=== PATIENT | female | born 1990 | race African-American/Black ===

== ENCOUNTER 2016-12-21 11:08 | Emergency (ER) | payer OTHER ==
[2016-12-21 11:41] VITALS: BP 102/49; PULSE 74; TEMP 98; BMI 19.8
[2016-12-21] MEDS ORDERED: IBUPROFEN 600 MG TABLET (FP) PO ONE ×2 (13:37→14:04)
[2016-12-21] MEDS ORDERED: AMOXICILLIN 500 MG CAPSULE (FP) PO ONE (13:37)
--- NOTE | 2016-12-21 14:01 | PDOC ---
[id number] 4d PAIN Time Seen by Provider: 12/21/16 13:18 History Source: Patient Exam Limitations: No Limitations - History of Present Illness Initial Comments: 12/21/16 13:57 CHIEF COMPLAINT: Toothache HISTORY OF PRESENT ILLNESS: This is an otherwise healthy 26 year old female who presents for evaluation of two days of dental pain and sensation of gum swelling. She denies fevers/chills or any other systemic symptoms. She has a dental appointment on 12/31. Vital signs on arrival are unremarkable. REVIEW OF SYSTEMS: GENERAL/CONSTITUTIONAL: No fever or chills. No weakness. No weight change. HEAD, EYES, EARS, NOSE AND THROAT: See HPI. NEUROLOGIC: No headache, vertigo, loss of consciousness, or loss of sensation. HEMATOLOGIC/LYMPHATIC: No anemia, easy bleeding, or history of blood clots. ALLERGIC/IMMUNOLOGIC: No hives or skin allergy. No latex allergy. PHYSICAL EXAM: GENERAL: The patient is awake, alert, and fully oriented, in no acute distress. ENT: Fractured and decayed right maxillary premolar, decayed mandibular premolar. Mild surrounding gingival tenderness without fluctuance. No trisumus. Pupils equal, round and reactive to light, extraocular movements intact, sclera anicteric, conjunctiva clear. Neck NEUROLOGICAL: Normal speech, normal gait. CN II-XII grossly intact. PSYCH: Normal mood, normal affect. SKIN: Warm, dry, normal turgor, no rashes or lesions noted. Past History - Past Medical History Allergies/Adverse Reactions: Allergies Allergy/AdvReac Type Severity Reaction Status Date / Time No Known Allergies Allergy Verified 12/21/16 11:39 Home Medications: Ambulatory Orders Ibuprofen [Motrin -] 400 mg PO TID #21 tablet 04/02/16 Triamcinolone Acetonide [Nasacort] 1 ml NS BID #1 spray 04/02/16 Amoxicillin - [Amoxicillin 500mg Capsule -] 500 mg PO TID #21 capsule 12/21/16 Ibuprofen [Motrin -] 600 mg PO QID #30 tablet 12/21/16 Oxycodone HCl/Acetaminophen [Percocet 5-325 mg Tablet] 1 tab PO Q6H PRN #20 tablet MDD 4 tabs 12/21/16 Other medical history: DENIES. - Psycho/Social/Smoking Cessation Hx Suicidal Ideation: No Smoking History: Never smoked *Physical Exam - Vital Signs Last Vital Signs Temp Pulse Resp BP Pulse Ox 98 F 74 19 102/49 98 12/21/16 11:39 12/21/16 11:39 12/21/16 11:39 12/21/16 11:39 12/21/16 11:39 Medical Decision Making - Medical Decision Making 12/21/16 14:01 A/P: 26 year old female with dental decay and likely infection. -Amoxicillin -Ibuprofen -Patient has dental followup scheduled *DC/Admit/Observation/Transfer Diagnosis at time of Disposition: dental pain - Discharge Dispostion Disposition: HOME Condition at time of disposition: Stable Admit: No - Prescriptions Prescriptions: Amoxicillin - [Amoxicillin 500mg Capsule -] 500 mg PO TID #21 capsule Ibuprofen [Motrin -] 600 mg PO QID #30 tablet Oxycodone HCl/Acetaminophen [Percocet 5-325 mg Tablet] 1 tab PO Q6H PRN #20 tablet MDD 4 tabs PRN Reason: Pain - Referrals Referrals: Lucho Salinas MD [Primary Care Provider] -
[2016-12-21] MEDS ORDERED: AMOX TR/POT CLAV 500MG/125MG TABLETS (FP) ONE (14:04)
== END 2016-12-21 15:29 | disposition home or self-care (01) ==
LOC: JERFT 11:08
DX: K02.9 Dental caries, unspecified (principal)
CPT/HCPCS: 99281-25

== ENCOUNTER 2017-04-18 17:35 | Emergency (ER) | payer OTHER ==
[2017-04-18 18:10] VITALS: BP 112/70; PULSE 65; TEMP 98.2; BMI 18.8
--- NOTE | 2017-04-18 18:49 | PDOC ---
History of Present Illness - General Chief Complaint: Pain, Acute Stated Complaint: PAIN, ACUTE Time Seen by Provider: 04/18/17 18:48 - History of Present Illness Initial Comments: 04/18/17 22:48 not seen by Devante MORRISSEY Past History - Past Medical History Allergies/Adverse Reactions: Allergies Allergy/AdvReac Type Severity Reaction Status Date / Time No Known Allergies Allergy Verified 04/18/17 18:06 Home Medications: Ambulatory Orders Ibuprofen [Motrin -] 400 mg PO TID #21 tablet 04/02/16 Triamcinolone Acetonide [Nasacort] 1 ml NS BID #1 spray 04/02/16 Amoxicillin - [Amoxicillin 500mg Capsule -] 500 mg PO TID #21 capsule 12/21/16 Ibuprofen [Motrin -] 600 mg PO QID #30 tablet 12/21/16 Oxycodone HCl/Acetaminophen [Percocet 5-325 mg Tablet] 1 tab PO Q6H PRN #20 tablet MDD 4 tabs 12/21/16 Cyclobenzaprine HCl [Flexeril 10 mg] 10 mg PO BID PRN #14 tablet 04/18/17 Other medical history: dENIES - Immunization History Immunization Up to Date: Yes - Psycho/Social/Smoking Cessation Hx Suicidal Ideation: No Smoking History: Never smoked Information on smoking cessation initiated: No Hx Alcohol Use: No Drug/Substance Use Hx: No *Physical Exam - Vital Signs Last Vital Signs Temp Pulse Resp BP Pulse Ox 98.2 F 65 17 112/70 95 04/18/17 18:07 04/18/17 18:07 04/18/17 18:07 04/18/17 18:07 04/18/17 18:07 *DC/Admit/Observation/Transfer Diagnosis at time of Disposition: Fall, Spasm of back muscles - Discharge Dispostion Disposition: HOME Condition at time of disposition: Improved - Prescriptions Prescriptions: Cyclobenzaprine HCl [Flexeril 10 mg] 10 mg PO BID PRN #14 tablet PRN Reason: spasm - Referrals Referrals: Lucho Salinas MD [Primary Care Provider] - - Patient Instructions Printed Discharge Instructions: DI for Back Spasm Additional Instructions: Rest, no heavy lifting or exercise until pain is resolved Hot soaks to neck and low back as often as possible/hot showers or Jacuzzis No massage or therapy until spasm is gone Naprosyn to -275 mg tablets every 8 hours for the next 3 days then as needed for pain and swelling Cyclobenzaprine 1-10mg every 8 hours as needed for spasm May take Percocet 1/2-1 tablet every 6 hours for severe pain tonight, understanding will make dizzy and sleepy . along with cyclobenzaprine use with caution. If not significant improvement within 24 hours with medication and rest regime, followup with private physician for change in medications and /or therapy. - Post Discharge Activity Work/School Note: Back to Work
[2017-04-18] MEDS ORDERED: OXYCODONE/APAP 5/325MG COMBO TABLET ONE (19:09)
[2017-04-18] MEDS ORDERED: CYCLOBENZAPRINE HCL 10 MG TABLET (FP) ONE (19:09)
[2017-04-18] MEDS ORDERED: KETOROLAC TROMETHAMINE 60 MG/2 ML VIAL ONE (19:09)
[2017-04-18] MEDS ORDERED: OXYCODONE/APAP 5/325MG COMBO TABLET PO ONE (19:19)
[2017-04-18] MEDS ORDERED: KETOROLAC TROMETHAMINE 60 MG/2 ML VIAL IM ONE (19:19)
[2017-04-18] MEDS ORDERED: CYCLOBENZAPRINE HCL 10 MG TABLET (FP) PO ONE (19:19)
--- NOTE | 2017-04-18 19:25 | PDOC ---
History of Present Illness - General Chief Complaint: Pain, Acute Stated Complaint: PAIN, ACUTE Time Seen by Provider: 04/18/17 18:48 History Source: Patient Exam Limitations: No Limitations - History of Present Illness Initial Comments: 04/18/17 19:20 5 days ago slipped and fell falling backwards landing on mid to low back on edge is of stairs. was seen 2 at another hospital, x-rays and urinalysis were tested which were noted to be negative for fractures or any other pathology. Was given a prescription for to 75 mg Naprosyn the patient states has not had significant resolve of her pain. is still difficult to move, sit or stand. Denies problems with bowel or bladder, has appointment to see her PMD on Tuesday Pain Location: reports: back Method of Injury: Yes: fall Modifying Factors: improves with: cold therapy Associated Symptoms (Fall): denies symptoms Past History - Travel Traveled outside of the country in the last 30 days: No Close contact w/someone who was outside of country & ill: No - Past Medical History Allergies/Adverse Reactions: Allergies Allergy/AdvReac Type Severity Reaction Status Date / Time No Known Allergies Allergy Verified 04/18/17 18:06 Home Medications: Ambulatory Orders Ibuprofen [Motrin -] 400 mg PO TID #21 tablet 04/02/16 Triamcinolone Acetonide [Nasacort] 1 ml NS BID #1 spray 04/02/16 Amoxicillin - [Amoxicillin 500mg Capsule -] 500 mg PO TID #21 capsule 12/21/16 Ibuprofen [Motrin -] 600 mg PO QID #30 tablet 12/21/16 Oxycodone HCl/Acetaminophen [Percocet 5-325 mg Tablet] 1 tab PO Q6H PRN #20 tablet MDD 4 tabs 12/21/16 Cyclobenzaprine HCl [Flexeril 10 mg] 10 mg PO BID PRN #14 tablet 04/18/17 Other medical history: dENIES - Immunization History Immunization Up to Date: Yes - Psycho/Social/Smoking Cessation Hx Suicidal Ideation: No Smoking History: Never smoked Information on smoking cessation initiated: No Hx Alcohol Use: No Drug/Substance Use Hx: No Trauma Specific PMHX - Complaint Specific PMHX Back Injury: Yes Neck Injury: No Review of Systems - Review of Systems Able to Perform ROS?: Yes Is the patient limited Cameroonian proficient: Yes Constitutional: Yes: Symptoms Reported, See HPI, Malaise HEENTM: No: Symptoms Reported Respiratory: Yes: Symptoms reported, See HPI Musculoskeletal: Yes: Symptoms Reported, See HPI, Back Pain Integumentary: Yes: Symptoms Reported, See HPI, Bruising (faint) All Other Systems: Reviewed and Negative *Physical Exam - Vital Signs Last Vital Signs Temp Pulse Resp BP Pulse Ox 98.2 F 65 17 112/70 95 04/18/17 18:07 04/18/17 18:07 04/18/17 18:07 04/18/17 18:07 04/18/17 18:07 - Physical Exam General Appearance: Yes: Nourished, Appropriately Dressed, Apparent Distress, Mild Distress HEENT: positive: MISSY, Normal ENT Inspection, TMs Normal, Pharynx Normal Neck: positive: Supple (no C-spine tenderness crepitus or step-offs). negative : Tender Respiratory/Chest: positive: Lungs Clear Gastrointestinal/Abdominal: positive: Soft Musculoskeletal: positive: Normal Inspection, Decreased Range of Motion, Muscle Spasm, Vertebral Tenderness (has no true spinous process tenderness, however has palpable spasm noted to the paravertebral spinous muscles at waist and below approximately L1-3. Range of motion is limited secondary to the spasm. Worse on the right than the left.). negative: CVA Tenderness, CVA Tenderness (L ) Extremity: positive: Normal Inspection, Normal Range of Motion. negative: Tender Integumentary: positive: Normal Color, Pale. 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 We'll treat with NSAIDs and cyclobenzaprine. Given 2 tablets of Percocet here for pain relief. Has appointment to follow up with her PMD this week. *DC/Admit/Observation/Transfer Diagnosis at time of Disposition: Spasm of back muscles Fall Qualifiers: Encounter type: initial encounter Qualified Code(s): W19.XXXA - Unspecified fall, initial encounter - Discharge Dispostion Disposition: HOME Condition at time of disposition: Stable Admit: No - Patient Instructions Printed Discharge Instructions: DI for Back Spasm Additional Instructions: Rest, no heavy lifting or exercise until pain is resolved Hot soaks to neck and low back as often as possible/hot showers or Jacuzzis No massage or therapy until spasm is gone Naprosyn to -275 mg tablets every 8 hours for the next 3 days then as needed for pain and swelling Cyclobenzaprine 1-10mg every 8 hours as needed for spasm May take Percocet 1/2-1 tablet every 6 hours for severe pain tonight, understanding will make dizzy and sleepy . along with cyclobenzaprine use with caution. If not significant improvement within 24 hours with medication and rest regime, followup with private physician for change in medications and /or therapy. - Post Discharge Activity Work/School Note: Back to Work
== END 2017-04-18 19:45 | disposition home or self-care (01) ==
LOC: JERFT 17:35
PROC: 3E0233Z Introduction of Anti-inflammatory into Muscle, Percutaneous Approach (ICD-10-PCS; principal; 2017-04-18)
DX: M62.830 Muscle spasm of back (principal); W10.8XXD Fall (on) (from) other stairs and steps, subsequent encounter
CPT/HCPCS: 84703; 96372; 99281-25

== ENCOUNTER 2017-09-28 17:28 | Emergency (ER) | payer OTHER ==
[2017-09-28 17:36] VITALS: BP 134/71; TEMP 99; BMI 17.2
--- NOTE | 2017-09-28 17:36 | PDOC ---
Rapid Medical Evaluation Time Seen by Provider: 09/28/17 17:32 Medical Evaluation: Allergies Allergy/AdvReac Type Severity Reaction Status Date / Time No Known Allergies Allergy Verified 04/18/17 18:06 09/28/17 17:32 I have performed a brief in-person evaluation of this patient. The patient presents with a chief complaint of: vomiting/diarrhea, abd pain since tuesday, +chills, LMP 07/18 (don't know if , hx irregular menses), requests HIV testing Pertinent physical exam findings: epigastric tenderness I have ordered the following: cbc, cmp, lipase, ua, ucx, upreg The patient will proceed to the ED for further evaluation.
[2017-09-28 18:44] LABS: BASO % 0.5 % (0-2.0); EOS % 1.2 % (0-4.5); HEMATOCRIT 33.2 % (32.4-45.2); HEMOGLOBIN 11.1 GM/dL (10.7-15.3); LYMPH % 15.6 % (8-40); MCH 30.9 pg (25.7-33.7); MCHC 33.5 g/dl (32.0-36.0); MEAN CELL VOLUME 92.2 fl (80-96); MONO % 11.2 % (3.8-10.2); NEUT % 71.5 % (42.8-82.8); PLATELET COUNT 237 K/MM3 (134-434); RBC 3.61 M/mm3 (3.60-5.2); RDW 14.1 % (11.6-15.6); WHITE BLOOD COUNT 3.6 K/mm3 (4.0-10.0)
[2017-09-28 19:00] LABS: URINE APPEARANCE CLOUDY; URINE BILIRUBIN NEGATIVE (NEGATIVE); URINE BLOOD NEGATIVE (NEGATIVE); URINE COLOR YELLOW; URINE GLUCOSE (UA) NEGATIVE (NEGATIVE); URINE KETONE 1+ (NEGATIVE); URINE NITRITE NEGATIVE (NEGATIVE); URINE PROTEIN NEGATIVE (NEGATIVE)
[2017-09-28 19:01] LABS: HCG,QUALITATIVE URINE POSITIVE
[2017-09-28 19:41] LABS: URINE LEUK ESTERASE 2+ (NEGATIVE)
[2017-09-28 19:43] LABS: EPI CELLS MODERATE /HPF (FEW); URINE BACTERIA RARE /hpf (NONE SEEN); URINE HYALINE CAST 4 /lpf; URINE MUCUS FEW
[2017-09-28] MEDS ORDERED: SODIUM CHLORIDE 1,000 ML IV STA (20:22)
[2017-09-28] MEDS ORDERED: MAG HYDROX/AL HYDROX/SIMETH 30 ML UNIT-DOSE CUP PO ONE (20:23)
[2017-09-28] MEDS ORDERED: METOCLOPRAMIDE HCL INJECTION 10 MG/2 ML VIAL IVPUSH ONE (20:25)
[2017-09-28] MEDS ORDERED: CEPHALEXIN MONOHYDRATE 500 MG CAPSULE (UD) PO ONE (20:26)
--- NOTE | 2017-09-28 20:28 | PDOC ---
Attending Attestation - HPI HPI: 09/28/17 20:49 The patient is a 27 year old female (), with no significant past medical history, who presents to the emergency department with, nausea, vomiting and epigastric abdominal pain beginning approx. 2 days ago. Patient reports she learned today from a home test that she is . Patient reports the epigastric abdominal pain radiates up towards her chest. Patient reports she has been unable to keep much food and liquids down without vomiting in the past couple days. Patient reports her LMP was 10/30. She denies recent fevers, headache or dizziness. She denies recent dysuria, frequency, urgency or hematuria. She denies recent chest pain or shortness of breath. Allergies: NKA Primary Care Physician: Dr. Lucho Salinas <Cesar Lerma - Last Filed: 09/28/17 22:39> - Resident Resident Name: Campos Fajardo - ED Attending Attestation I have performed the following: I have examined & evaluated the patient, The case was reviewed & discussed with the resident, I agree w/resident's findings & plan, Exceptions are as noted - Physicial Exam PE: 09/28/17 22:59 Physical Exam General Appearance: Yes: Appropriately Dressed. No: Apparent Distress, Intoxicated HEENT: positive: EOMI, MISSY, Normal ENT Inspection, Normal Voice, TMs Normal, Pharynx Normal. negative: Pale Conjunctivae, Photophobia, Scleral Icterus (R), Scleral Icterus (L) Neck: positive: Trachea midline, Normal Thyroid, Supple. negative: Tender, Rigid, Carotid bruit, Stridor, Lymphadenopathy (R), Lymphadenopathy (L), Thyromegaly Respiratory/Chest: positive: Lungs Clear, Normal Breath Sounds. negative: Chest Tender, Respiratory Distress, Accessory Muscle Use, Labored Respiration, RES, Crackles, Rales, Rhonchi, Stridor, Wheezing, Dullness Cardiovascular: positive: Regular Rhythm, Regular Rate, S1, S2. negative: Edema , JVD, Murmur, Bradycardia, Tachycardia Vascular Pulses: Dorsalis-Pedis (R): 2+, Doralis-Pedis (L): 2+ Gastrointestinal/Abdominal: positive: Normal Bowel Sounds, Flat, Soft. negative : Tender, Organomegaly, Pulsatile Mass, Increased Bowel Sounds, Decreased BS, Distended, Guarding, Rebound, Hernia, Hepatomegaly, Spleenomegaly Lymphatic: negative: Adenopathy, Tenderness Musculoskeletal: positive: Normal Inspection. negative: CVA Tenderness, Decreased Range of Motion Extremity: positive: Normal Capillary Refill, Normal Inspection, Normal Range of Motion, Pelvis Stable. negative: Tender, Pedal Edema, Swelling, Erythema Integumentary: positive: Normal Color, Dry, Warm. 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 negative: EOM Palsy, Facial Droop, Sensory Deficit - Medical Decision Making 09/29/17 19:36 Pt treated and released <Jose Cruz Mccallum - Last Filed: 09/29/17 19:36>
--- NOTE | 2017-09-28 21:11 | PDOC ---
History of Present Illness - General History Source: Patient Exam Limitations: No Limitations - History of Present Illness Initial Comments: 09/28/17 21:10 Patient is a 27F here today complaining of burning epigastric abdominal pain with nausea and vomiting for the past few days. Last menstrual period was 07/18. She is also complaining of associated burning epigastric abdominal pain that radiates up her chest. She states she vomited a small amount of bright red blood after retching multiple times. Endorses chills, denies fever. Last bowel movement was yesterday. Denies lower abdominal pain, vaginal bleeding, vaginal discharge, dyspareunia. Denies pain with urination. <Campos Fajardo - Last Filed: 09/29/17 00:56> <Jose Cruz Mccallum - Last Filed: 09/29/17 02:09> - General Chief Complaint: Pain Stated Complaint: ABD PAIN Time Seen by Provider: 09/28/17 17:32 Past History - Past Medical History COPD: No - Immunization History Immunization Up to Date: Yes - Suicide/Smoking/Psychosocial Hx Smoking History: Never smoked Hx Alcohol Use: No Drug/Substance Use Hx: No Substance Use Type: None <Campos Fajardo - Last Filed: 09/29/17 00:56> <Jose Cruz Mccallum - Last Filed: 09/29/17 02:09> - Past Medical History Allergies/Adverse Reactions: Allergies Allergy/AdvReac Type Severity Reaction Status Date / Time No Known Allergies Allergy Verified 09/28/17 17:36 Home Medications: Ambulatory Orders Ibuprofen [Motrin -] 400 mg PO TID #21 tablet 04/02/16 Triamcinolone Acetonide [Nasacort] 1 ml NS BID #1 spray 04/02/16 Amoxicillin - [Amoxicillin 500mg Capsule -] 500 mg PO TID #21 capsule 12/21/16 Ibuprofen [Motrin -] 600 mg PO QID #30 tablet 12/21/16 Oxycodone HCl/Acetaminophen [Percocet 5-325 mg Tablet] 1 tab PO Q6H PRN #20 tablet MDD 4 tabs 12/21/16 Cyclobenzaprine HCl [Flexeril 10 mg] 10 mg PO BID PRN #14 tablet 04/18/17 Cephalexin Monohydrate [Keflex -] 500 mg PO BID #14 capsule 09/29/17 Metoclopramide HCl [Reglan -] 10 mg PO TID #21 tablet 09/29/17 Ondansetron [Zofran *Odt*] 8 mg SL BID PRN #10 od.tablet 09/29/17 Review of Systems - Review of Systems Comments:: 09/28/17 22:34 GENERAL/CONSTITUTIONAL: No fever. Positive for chills. No weakness. HEAD, EYES, EARS, NOSE AND THROAT: No change in vision. No sore throat. CARDIOVASCULAR: No chest pain or shortness of breath RESPIRATORY: No cough, wheezing. GASTROINTESTINAL: Positive for nausea and vomiting. Negative for diarrhea or constipation. GENITOURINARY: No dysuria, frequency, or change in urination. MUSCULOSKELETAL: No joint or muscle swelling or pain. No neck or back pain. SKIN: No rash NEUROLOGIC: Positive for headache. vertigo, loss of consciousness, or change in strength/sensation. HEMATOLOGIC/LYMPHATIC: No anemia, easy bleeding, or history of blood clots. ALLERGIC/IMMUNOLOGIC: No hives or skin allergy. <Campos Fajardo - Last Filed: 09/29/17 00:56> *Physical Exam - Vital Signs Last Vital Signs Temp Pulse Resp BP Pulse Ox 99.0 F 107 H 20 134/71 100 09/28/17 17:32 09/28/17 17:32 09/28/17 17:32 09/28/17 17:32 09/28/17 17:32 - Physical Exam Comments: 09/28/17 22:34 GENERAL: Awake, alert, and fully oriented, in no acute distress HEAD: No signs of trauma, normocephalic, atraumatic EYES: PERRLA, EOMI, sclera anicteric, conjunctiva clear ENT: Auricles normal inspection, hearing grossly normal, nares patent, oropharynx clear without exudates. Dry mucosa NECK: Normal ROM, supple, no lymphadenopathy, JVD, or masses LUNGS: No distress, speaks full sentences, clear to auscultation bilaterally HEART: Regular rate and rhythm, normal S1 and S2, no murmurs, rubs or gallops, peripheral pulses normal and equal bilaterally. ABDOMEN: Soft, positive for suprapubic and epigastric tenderness. normoactive bowel sounds. No guarding, no rebound. No masses. No CVA tenderness. EXTREMITIES: Normal inspection, Normal range of motion, no edema. No clubbing or cyanosis. NEUROLOGICAL: Cranial nerves II through XII grossly intact. Normal speech, normal gait, no focal sensorimotor deficits SKIN: Warm, Dry, normal turgor, no rashes or lesions noted. <Campos Fajardo - Last Filed: 09/29/17 00:56> - Vital Signs Last Vital Signs Temp Pulse Resp BP Pulse Ox 99.0 F 84 20 134/71 100 09/28/17 17:32 09/29/17 00:53 09/29/17 00:53 09/28/17 17:32 09/28/17 17:32 <Jose Cruz Mccallum - Last Filed: 09/29/17 02:09> ED Treatment Course - LABORATORY CBC & Chemistry Diagram: 09/28/17 18:01 09/28/17 21:58 - ADDITIONAL ORDERS Additional order review: Laboratory Results 09/28/17 09/28/17 18:01 18:01 Lipase 133 Urine Color Yellow Urine Appearance Cloudy Urine pH 6.0 Ur Specific Noel 1.019 Urine Protein Negative Urine Glucose (UA) Negative Urine Ketones 1+ H Urine Blood Negative Urine Nitrite Negative Urine Bilirubin Negative Urine Urobilinogen 2.0 H Ur Leukocyte Esterase 2+ H Urine WBC (Auto) 3 Urine RBC (Auto) 3 Ur Epithelial Cells Moderate Urine Bacteria Rare Hyaline Casts 4 Urine Mucus Few Urine HCG, Qual Positive 09/28/17 18:01 RBC 3.61 MCV 92.2 MCHC 33.5 RDW 14.1 MPV 8.0 Neutrophils % 71.5 Lymphocytes % 15.6 Monocytes % 11.2 H Eosinophils % 1.2 Basophils % 0.5 - RADIOLOGY Radiology Studies Ordered: Category Date Time Status TRANSVAGINAL US PREG [US] Stat Ultrasound 09/28/17 20:26 Ordered <Campos Fajardo - Last Filed: 09/29/17 00:56> - LABORATORY CBC & Chemistry Diagram: 09/28/17 18:01 09/28/17 21:58 - ADDITIONAL ORDERS Additional order review: Laboratory Results 09/28/17 09/28/17 09/28/17 21:58 20:14 18:01 Sodium 135 L Potassium 4.0 Chloride 104 Carbon Dioxide 24 Anion Gap 7 L BUN 5 L Creatinine 0.6 Creat Clearance w eGFR > 60 Random Glucose 75 Calcium 8.7 Total Bilirubin 0.4 AST 18 ALT 19 Alkaline Phosphatase 45 Total Protein 7.8 Albumin 3.4 Lipase 133 Beta HCG, Quant 619217.0 Urine Color Urine Appearance Urine pH Ur Specific Noel Urine Protein Urine Glucose (UA) Urine Ketones Urine Blood Urine Nitrite Urine Bilirubin Urine Urobilinogen Ur Leukocyte Esterase Urine WBC (Auto) Urine RBC (Auto) Ur Epithelial Cells Urine Bacteria Hyaline Casts Urine Mucus Urine HCG, Qual 09/28/17 18:01 Sodium Potassium Chloride Carbon Dioxide Anion Gap BUN Creatinine Creat Clearance w eGFR Random Glucose Calcium Total Bilirubin AST ALT Alkaline Phosphatase Total Protein Albumin Lipase Beta HCG, Quant Urine Color Yellow Urine Appearance Cloudy Urine pH 6.0 Ur Specific Noel 1.019 Urine Protein Negative Urine Glucose (UA) Negative Urine Ketones 1+ H Urine Blood Negative Urine Nitrite Negative Urine Bilirubin Negative Urine Urobilinogen 2.0 H Ur Leukocyte Esterase 2+ H Urine WBC (Auto) 3 Urine RBC (Auto) 3 Ur Epithelial Cells Moderate Urine Bacteria Rare Hyaline Casts 4 Urine Mucus Few Urine HCG, Qual Positive 09/28/17 18:01 RBC 3.61 MCV 92.2 MCHC 33.5 RDW 14.1 MPV 8.0 Neutrophils % 71.5 Lymphocytes % 15.6 Monocytes % 11.2 H Eosinophils % 1.2 Basophils % 0.5 - RADIOLOGY Radiology Studies Ordered: Category Date Time Status ABDOMEN US -LIMITED [US] Stat Ultrasound 09/28/17 23:46 Taken - Medications Given in the ED: ED Medications Discontinued Medications Generic Name Dose Route Start Last Admin Trade Name Freq PRN Reason Stop Dose Admin Al Hydroxide/Mg Hydroxide 30 ml 09/28/17 20:23 09/28/17 22:36 Mylanta Oral Suspension - PO 09/28/17 20:24 30 ml ONCE ONE Administration Cephalexin HCl 500 mg 09/28/17 20:26 09/28/17 22:37 Keflex - PO 09/28/17 20:27 500 mg ONCE ONE Administration Sodium Chloride 1,000 mls @ 1,000 mls/hr 09/28/17 20:22 09/28/17 22:36 Normal Saline - IV 09/28/17 21:21 1,000 mls/hr ASDIR STA Administration Metoclopramide HCl 10 mg 09/28/17 20:25 09/28/17 22:36 Reglan Injection - IVPUSH 09/28/17 20:26 10 mg ONCE ONE Administration <Sinisterra,Jose Cruz - Last Filed: 09/29/17 02:09> Medical Decision Making - Medical Decision Making 09/28/17 22:35 27F here today with and vomiting. Vital signs notable for tachycardia in triage, not tachycardic on my exam. Patient appears dry. Tender in suprapubic region. Will attempt to confirm IUP with tvus. Differential diagnosis includes, but is not limited to: hyperemesis gravidarum, uti, viral gastritis. Will treat with fluids, reglan, pepcid, maalox. Will evaluate further with cbc, cmp, ua, beta quant. 09/28/17 22:38 Laboratory Tests 09/28/17 09/28/17 09/28/17 18:01 18:01 21:58 WBC 3.6 L Hgb 11.1 Hct 33.2 Plt Count 237 BUN 5 L Creatinine 0.6 Ur Leukocyte Esterase 2+ H Urine WBC (Auto) 3 Urine RBC (Auto) 3 Urine Bacteria Rare Urine HCG, Qual Positive CBC normal. CMP shows normal kidney function, reassuring. UA shows 2+ LE with 3 wbc and rare bacteria. Will treat due to patient's status. Beta quant and tvus pending. 09/29/17 00:45 OB TVUS shows IUP 10wk4d, hr 138. US limited shows gallstones with distention, but no pericholecystic fluid. No farris sign. Patient nontender in RUQ. Believe gallstones are incidental finding and patient has hyperemesis gravidarum. Will discharge with reglan and zofran. 09/29/17 00:53 HR 81. PO challenge passed. <Campos Fajardo - Last Filed: 09/29/17 00:56> *DC/Admit/Observation/Transfer - Discharge Dispostion Admit: No <Campos Fajardo - Last Filed: 09/29/17 00:56> <Jose Cruz Mccallum - Last Filed: 09/29/17 02:09> Diagnosis at time of Disposition: Hyperemesis gravidarum - Discharge Dispostion Disposition: HOME Condition at time of disposition: Good - Prescriptions Prescriptions: Cephalexin Monohydrate [Keflex -] 500 mg PO BID #14 capsule Metoclopramide HCl [Reglan -] 10 mg PO TID #21 tablet Ondansetron [Zofran *Odt*] 8 mg SL BID PRN #10 od.tablet PRN Reason: Nausea And/Or Vomiting - Patient Instructions Printed Discharge Instructions: DI for Hyperemesis Gravidarum Additional Instructions: Please call your primary care physician and OB tomorrow to make an appointment. Please return if you have any new, worsening or concerning symptoms.
[2017-09-28] MEDS ORDERED: FAMOTIDINE IV 20 MG/12 ML VIAL IVPUSH SCH (22:00)
[2017-09-28 22:27] LABS: ALBUMIN 3.4 g/dl (3.4-5.0); ALK PHOS 45 U/L (45-117); ANION GAP 7 (8-16); BILIRUBIN,TOTAL 0.4 mg/dL (0.2-1.0); BLOOD UREA NITROGEN 5 mg/dL (7-18); CALCIUM 8.7 mg/dL (8.5-10.1); CHLORIDE 104 mmol/L (98-107); CO2 24 mmol/L (21-32); CREATININE 0.6 mg/dL (0.55-1.02); GLUCOSE,RANDOM 75 mg/dL (74-106); SGOT/AST 18 U/L (15-37); SGPT/ALT 19 U/L (12-78); SODIUM 135 mmol/L (136-145); TOT PROT 7.8 g/dl (6.4-8.2)
[2017-09-29 00:53] VITALS: PULSE 84
== END 2017-09-29 02:17 | disposition home or self-care (01) ==
LOC: JER 17:28
PROC: 3E033GC Introduction of Other Therapeutic Substance into Peripheral Vein, Percutaneous Approach (ICD-10-PCS; principal; 2017-09-28)
PROC: 3E033GC Introduction of Other Therapeutic Substance into Peripheral Vein, Percutaneous Approach (ICD-10-PCS; 2017-09-28)
DX: O26.891 Other specified pregnancy related conditions, first trimester (principal); O21.0 Mild hyperemesis gravidarum; Z3A.10 10 weeks gestation of pregnancy
CPT/HCPCS: 36415; 76705-TC; 76801-TC; 80053; 81003; 81015; 83690; 84702; 84703; 85025; 87077; 87086; 87389; 87491; 87591; 99282-25

== ENCOUNTER 2018-03-03 10:07 | Emergency (ER) | payer OTHER ==
[2018-03-03 10:24] VITALS: TEMP 98.2; BMI 224.5
--- NOTE | 2018-03-03 10:54 | PDOC ---
Attending Attestation - HPI HPI: 03/03/18 11:16 The patient is a 27 year old female, currently 33 weeks , with no significant past medical history who presents to the emergency department for evaluation of dental pain and cough. The patient reports a 4 day history of worsening molar pain. She describes the pain as constant and moderate in nature. The patient reports visiting her dentist 1 month ago who advised her to remove an infected molar after her since the extraction of her tooth was not emergent. She also reports a 3 day history of non-productive cough. She reports taking leftover Cefalexin from her medicine cabinet with no alleviation to symptoms. Today, the patient describes the pain as unbearable which prompted her to visit the emergency department for further evaluation. Of note, the patient plans to follow up with her Dentist next Tuesday (03/08/18). The patient denies chest pain, shortness of breath, headache, and dizziness. Denies fevers, chills, nausea, vomiting, diarrhea, constipation, and any other gynecological complaints. Allergies: NKDA Past surgical history: Patient denies. Social history: No reported cigarette, alcohol, or drug use. - Physicial Exam PE: Vitals: Triage Vital signs reviewed General Appearance: no acute distress, well nourished well developed, Head: Atraumatic, normocephalic Mouth: (+)Gingival swelling, dental darrell to the left lower posterior molar. Throat: Posterior oropharynx without erythema, mucous membranes moist, Neck: Supple Chest Wall: Nontender Cardiac: Regular rate and rhythm, no murmurs, no rubs, no gallops, Lungs: Clear to auscultation bilateral, good air movement bilaterally, Abdomen: Soft, nondistended, normal bowel sounds, nontender to palpation Extremities: Full range of motion to all extremities, no cyanosis, clubbing, or edema Skin: Warm and dry, no rashes or lesions, no petechiae Psych: normal mood, normal affect - Medical Decision Making The patient is a 27 year old female, currently 33 weeks , with no significant past medical history who presents to the emergency department for evaluation of dental pain and cough. Plan: Antibiotics Referral to [facility] <Adrian Cardenas - Last Filed: 03/03/18 11:16> - Resident Resident Name: Gigi Rudolph - ED Attending Attestation I have performed the following: I have examined & evaluated the patient, The case was reviewed & discussed with the resident, I agree w/resident's findings & plan, Exceptions are as noted - Medical Decision Making 03/03/18 11:11 Well-appearing no apparent distress with greater than 1 month history of dental pain to a dental carry left posterior lower molar. She was told by her dentist that he was nonemergent and would prefer to defer taking the tooth out during her however over the last several days the pain in her tooth is worsens it is moderate persistent constant with no exacerbating or alleviating factors She has no fevers no facial swelling. She has a follow-up appointment with her dentist next Tuesday. We will prescribe a course of amoxicillin and have recommended the patient call back her dentist today or follow-up this afternoon at 4 PM with the urgent care dental clinic on [facility]. Patient was provided with the address Patient also complaining of a three-day history of dry non productive-cough. She has no fever her lungs are clear no suspicion for pneumonia at this time. <Joaquin García - Last Filed: 03/03/18 18:05> Attestations - Attestations Documentation prepared by Adrian Cardenas, acting as medical transcription for Joaquin García MD. <Adrian Cardenas - Last Filed: 03/03/18 11:16>
[2018-03-03] MEDS ORDERED: AMOXICILLIN 500 MG CAPSULE (FP) PO ONE (11:24)
[2018-03-03] MEDS ORDERED: AMOXICILLIN 500 MG CAPSULE (FP) ONE (11:27)
--- NOTE | 2018-03-03 11:31 | PDOC ---
History of Present Illness - General Chief Complaint: Respiratory Stated Complaint: COUGH Time Seen by Provider: 03/03/18 10:38 History Source: Patient - History of Present Illness Initial Comments: 03/03/18 11:26 27f 32w last obgyn visit a few days ago presents with painful molar tooth infection. Was told by dentist to wait until end of to extract tooth. Was taking an old prescription of Keflex the past 2 days. Also complains of dry cough for 3 days. Takes vitamins. Past History - Past Medical History Allergies/Adverse Reactions: Allergies Allergy/AdvReac Type Severity Reaction Status Date / Time No Known Allergies Allergy Verified 03/03/18 10:19 Home Medications: Ambulatory Orders Ibuprofen [Motrin -] 400 mg PO TID #21 tablet 04/02/16 Triamcinolone Acetonide [Nasacort] 1 ml NS BID #1 spray 04/02/16 Amoxicillin - [Amoxicillin 500mg Capsule -] 500 mg PO TID #21 capsule 12/21/16 Ibuprofen [Motrin -] 600 mg PO QID #30 tablet 12/21/16 Oxycodone HCl/Acetaminophen [Percocet 5-325 mg Tablet] 1 tab PO Q6H PRN #20 tablet MDD 4 tabs 12/21/16 Cyclobenzaprine HCl [Flexeril 10 mg] 10 mg PO BID PRN #14 tablet 04/18/17 Cephalexin Monohydrate [Keflex -] 500 mg PO BID #14 capsule 09/29/17 Metoclopramide HCl [Reglan -] 10 mg PO TID #21 tablet 09/29/17 Ondansetron [Zofran *Odt*] 8 mg SL BID PRN #10 od.tablet 09/29/17 Amoxicillin - [Amoxicillin 500mg Capsule -] 500 mg PO TID #21 capsule 03/03/18 COPD: No - Immunization History Immunization Up to Date: Yes - Suicide/Smoking/Psychosocial Hx Smoking History: Never smoked Have you smoked in the past 12 months: No Information on smoking cessation initiated: No Hx Alcohol Use: No Drug/Substance Use Hx: No Substance Use Type: None Review of Systems - Review of Systems Able to Perform ROS?: Yes Is the patient limited Turkmen proficient: No Constitutional: No: Symptoms Reported HEENTM: Yes: See HPI Respiratory: Yes: See HPI Cardiac (ROS): No: Symptoms Reported ABD/GI: No: Symptoms Reported : No: Symptoms Reported Musculoskeletal: No: Symptoms Reported Integumentary: No: Symptoms Reported Neurological: No: Symptoms reported All Other Systems: Reviewed and Negative *Physical Exam - Vital Signs Last Vital Signs Temp Pulse Resp BP Pulse Ox 98.2 F 88 18 116/65 98 03/03/18 10:20 03/03/18 10:20 03/03/18 10:20 03/03/18 10:20 03/03/18 10:35 - Physical Exam General Appearance: Yes: Nourished, Appropriately Dressed. No: Apparent Distress HEENT: positive: EOMI, MISSY, Normal ENT Inspection, Other (broken, infected left last mandibular molar) Neck: negative: Tender Respiratory/Chest: positive: Lungs Clear, Normal Breath Sounds. negative: Chest Tender, Respiratory Distress Cardiovascular: positive: Regular Rhythm, Regular Rate, S1, S2 Gastrointestinal/Abdominal: positive: Normal Bowel Sounds, Flat, Soft, Protuberent (). negative: Tender Medical Decision Making - Medical Decision Making 03/03/18 11:31 Will give antibiotics and sent to dental clinic. Will sent to L&D before discharge. *DC/Admit/Observation/Transfer Diagnosis at time of Disposition: Infected tooth - Discharge Dispostion Disposition: HOME Condition at time of disposition: Improved Decision to Admit order: No - Prescriptions Prescriptions: Amoxicillin - [Amoxicillin 500mg Capsule -] 500 mg PO TID #21 capsule - Referrals - Patient Instructions Printed Discharge Instructions: DI for Tooth Decay Additional Instructions: Come back to the ER for any new, worsening or concerning symptom. Takes antibiotics as prescribed Follow up TODAY with your dentist or at : [facility] [address] [place] [id number] - Post Discharge Activity
[2018-03-03 12:36] VITALS: BP 118/79; PULSE 73
== END 2018-03-03 12:50 | disposition home or self-care (01) ==
LOC: JER 10:07
DX: O26.893 Other specified pregnancy related conditions, third trimester (principal); K02.9 Dental caries, unspecified; Z3A.33 33 weeks gestation of pregnancy
CPT/HCPCS: 99284-25

== ENCOUNTER 2018-08-21 19:42 | Emergency (ER) | payer OTHER ==
[2018-08-21 19:49] VITALS: BP 131/62; PULSE 83; TEMP 98.6; BMI 16.2
--- NOTE | 2018-08-21 19:51 | PDOC ---
Rapid Medical Evaluation Chief Complaint: Toothache Time Seen by Provider: 08/21/18 19:45 Medical Evaluation: Allergies Allergy/AdvReac Type Severity Reaction Status Date / Time No Known Allergies Allergy Verified 03/03/18 10:19 08/21/18 19:46 I have performed a brief in-person evaluation of this patient. The patient presents with a chief complaint of: toothache x 5 days, taking amoxicillin and Motrin x 2 days Pertinent physical exam findings: tenderness and swelling to lower I have ordered the following: nothing The patient will proceed to the ED for further evaluation. Discharge Disposition - Referrals Referrals: Lucho Salinas MD [Primary Care Provider] - - Patient Instructions - Post Discharge Activity
--- NOTE | 2018-08-21 20:07 | PDOC ---
History of Present Illness - General Chief Complaint: Toothache Stated Complaint: Toothache Time Seen by Provider: 08/21/18 19:45 - History of Present Illness Initial Comments: 08/21/18 20:05 28-year-old female presents for evaluation of toothache. She states she is only been taking amoxicillin for 1 day with Motrin which really hasn't helped her she has not followed up with dentist yet. She has no systemic symptoms. Past History - Past Medical History Allergies/Adverse Reactions: Allergies Allergy/AdvReac Type Severity Reaction Status Date / Time No Known Allergies Allergy Verified 08/21/18 19:46 Home Medications: Ambulatory Orders NK [No Known Home Medication] 08/21/18 COPD: No - Immunization History Immunization Up to Date: Yes - Suicide/Smoking/Psychosocial Hx Smoking History: Never smoked Have you smoked in the past 12 months: No Hx Alcohol Use: No Drug/Substance Use Hx: No Substance Use Type: None Review of Systems - Review of Systems Constitutional: No: Fever HEENTM: Yes: See HPI, Dental Problems *Physical Exam - Vital Signs Last Vital Signs Temp Pulse Resp BP Pulse Ox 98.6 F 83 18 131/62 100 08/21/18 19:46 08/21/18 19:46 08/21/18 19:46 08/21/18 19:46 08/21/18 19:46 - Physical Exam Comments: 08/21/18 20:05 HEAD: NC/AT EYES: Conjuntiva clear NOSE: No d/c THROAT: Moist mucous membrances, oral pharanx clear, uvula midline; multiple dental caries no visible abscess MS: Full ROM in all joints without edema NEUROLOGIC: No gross sensory or motor deficits, NVID SKIN: Normal color and temperature no lesions or rashes Moderate Sedation - Procedure Monitoring Vital Signs: Procedure Monitoring Vital Signs Temperature 98.6 F 08/21/18 19:46 Pulse Rate 83 08/21/18 19:46 Respiratory Rate 18 08/21/18 19:46 Blood Pressure 131/62 08/21/18 19:46 O2 Sat by Pulse Oximetry (%) 100 08/21/18 19:46 *DC/Admit/Observation/Transfer Diagnosis at time of Disposition: Tooth ache - Discharge Dispostion Disposition: HOME Condition at time of disposition: Stable Decision to Admit order: No - Referrals Referrals: Lucho Salinas MD [Primary Care Provider] - [facility] [[facility]] - Patient Instructions Printed Discharge Instructions: DI for Tooth Decay, DI for Dental Pain Additional Instructions: Please continue to take the antibiotics as directed and follow-up with urgent care dental in the next day he did not need an appointment it's a walk-in dental clinic. Return to the emergency room should symptoms worsen or go unresolved continue with Motrin and Tylenol as directed for pain. - Post Discharge Activity
== END 2018-08-21 20:08 | disposition home or self-care (01) ==
LOC: JERFT 19:42
DX: K08.89 Other specified disorders of teeth and supporting structures (principal)
CPT/HCPCS: 99281-25

== ENCOUNTER 2020-04-11 17:36 | Emergency (ER) | payer OTHER ==
--- NOTE | 2020-04-11 17:57 | PDOC ---
Rapid Medical Evaluation Time Seen by Provider: 04/11/20 17:54 Medical Evaluation: Allergies Allergy/AdvReac Type Severity Reaction Status Date / Time No Known Allergies Allergy Verified 04/11/20 17:55 04/11/20 17:56 Pt presents for evaluation of a rash to her hands feet and mouth for two weeks. No known sick contacts. Exam: vesicles present to the mouth, palms and feet b/l Orders: nothing Pt to proceed to the ER for further evaluation Discharge Disposition - Diagnosis Rash - Referrals - Patient Instructions - Post Discharge Activity
[2020-04-11 17:59] VITALS: BMI 17.7
--- NOTE | 2020-04-11 19:06 | PDOC ---
History of Present Illness <ChristianoKatiuskaa - Last Filed: 04/11/20 20:40> - General History Source: Patient - History of Present Illness Timing/Duration: reports: other (2 weeks ago) Location: reports: extremities, feet, hands <MohawkNick - Last Filed: 04/12/20 12:11> <Joaquin García - Last Filed: 04/14/20 07:34> - General Chief Complaint: Rash Stated Complaint: SKIN INFECTION Time Seen by Provider: 04/11/20 17:54 Past History <ChristianoWilliams - Last Filed: 04/11/20 20:40> - Medical History COPD: No - Immunization History Immunization Up to Date: Yes - Psycho-Social/Smoking History Smoking History: Never smoked Have you smoked in the past 12 months: No Information on smoking cessation initiated: No - Substance Abuse Hx (Audit-C & DAST Scrn) How often the patient has a drink containing alcohol: Never Score: In Men: 4 or > Positive; In Women: 3 or > Positive: 0 Screen Result (Pos requires Nsg. Audit-10AR): Negative In the last yr the pt used illegal drug/Rx for NonMed reason: No Score: Yes response is considered Positive: 0 Screen Result (Positive result requires Nsg. DAST-10): Negative <MohawkNick - Last Filed: 04/12/20 12:11> <Joaquin García - Last Filed: 04/14/20 07:34> - Medical History Allergies/Adverse Reactions: Allergies Allergy/AdvReac Type Severity Reaction Status Date / Time No Known Allergies Allergy Verified 04/11/20 17:55 Home Medications: Ambulatory Orders NK [No Known Home Medication] 08/21/18 Review of Systems - Review of Systems Constitutional: No: Chills, Fever, Malaise Integumentary: Yes: Pruritus, Rash <Nick Potts - Last Filed: 04/12/20 12:11> *Physical Exam - Vital Signs Last Vital Signs Temp Pulse Resp BP Pulse Ox 97.8 F 72 18 114/69 98 04/11/20 20:05 04/11/20 20:05 04/11/20 20:05 04/11/20 20:05 04/11/20 20:05 <Keerthi Alvarado - Last Filed: 04/11/20 20:40> - Vital Signs Last Vital Signs Temp Pulse Resp BP Pulse Ox 97.6 F 86 16 98/55 L 100 04/11/20 17:55 04/11/20 17:55 04/11/20 17:55 04/11/20 17:55 04/11/20 17:55 - Physical Exam General Appearance: Yes: Appropriately Dressed. No: Apparent Distress HEENT: positive: Normal Voice Neck: positive: Supple Respiratory/Chest: negative: Respiratory Distress Integumentary: positive: Dry, Warm, Rash (R foot: 1-2mm sized pustular lesions to dorsum of R great toe w/ scaling to interdigits and flesh colored mm sized papules to R sole; B/l UEs: multiple scattered flesh colored mm sized papules to dorsum of b/l fingers w/ 1 lesion to dorsum of L index and L palm similar to ?moluscum contagiosum) Neurologic: positive: Fully Oriented, Alert, Normal Mood/Affect <Nick Potts - Last Filed: 04/12/20 12:11> - Vital Signs Last Vital Signs Temp Pulse Resp BP Pulse Ox 97.8 F 72 18 114/69 98 04/11/20 20:05 04/11/20 20:05 04/11/20 20:05 04/11/20 20:05 04/11/20 20:05 <Joaquin García - Last Filed: 04/14/20 07:34> ED Treatment Course - LABORATORY CBC & Chemistry Diagram: 04/11/20 18:40 04/11/20 18:40 - ADDITIONAL ORDERS Additional order review: Laboratory Results 04/11/20 04/11/20 18:40 18:40 Sodium 141 Potassium 3.9 Chloride 107 Carbon Dioxide 26 Anion Gap 8 BUN 11.3 Creatinine 1.0 Est GFR (CKD-EPI)AfAm 86.33 Est GFR (CKD-EPI)NonAf 74.49 Random Glucose 72 L Calcium 9.3 Total Bilirubin 0.6 AST 17 ALT 15 Alkaline Phosphatase 43 L Total Protein 8.5 H Albumin 4.0 Urine Color Yellow Urine Appearance Clear Urine pH 5.0 Ur Specific [place] 1.032 Urine Protein Negative Urine Glucose (UA) Negative Urine Ketones Trace H Urine Blood Negative Urine Nitrite Negative Urine Bilirubin Negative Urine Urobilinogen 1.0 Ur Leukocyte Esterase Negative Urine HCG, Qual Negative 04/11/20 18:40 RBC 3.96 MCV 89.9 MCHC 32.9 RDW 15.7 H D MPV 8.7 Neutrophils % 37.3 L D Lymphocytes % 49.4 H D Monocytes % 9.5 Eosinophils % 2.0 Basophils % 1.8 D <Keerthi Alvarado - Last Filed: 04/11/20 20:40> - LABORATORY CBC & Chemistry Diagram: 04/11/20 18:40 04/11/20 18:40 <Nick Potts - Last Filed: 04/12/20 12:11> - LABORATORY CBC & Chemistry Diagram: 04/11/20 18:40 04/11/20 18:40 - ADDITIONAL ORDERS Additional order review: 04/11/20 18:40 RBC 3.96 MCV 89.9 MCHC 32.9 RDW 15.7 H D MPV 8.7 Neutrophils % 37.3 L D Lymphocytes % 49.4 H D Monocytes % 9.5 Eosinophils % 2.0 Basophils % 1.8 D <Joaquin García - Last Filed: 04/14/20 07:34> Medical Decision Making - Medical Decision Making 04/11/20 20:40 Laboratory Tests 04/11/20 04/11/20 18:40 18:40 Syphilis Serology Non-reactive HIV Ag/Ab Combo Qual Negative <Keerthi Alvarado - Last Filed: 04/11/20 20:40> - Medical Decision Making 04/11/20 18:51 30 yo F, no sig hx, no sig hx, here pruritic rash to R foot and b/l UEs x 2 week s, getting worse. Rash started to R foot and has since progressed. Also noticed intra-oral lesion. No malaise, uri sxs, f/c. Has children at home but no sick contacts. No new meds or recent travel. No other obvious inciting factors. No h/o same see exam Non-specific dermatitis Etiology unclear but possibilities include hand/foot/mouth (though no uri sxs, f/c) vs scabies (given itch and interdigital involvement, though oral lesions points away from this) vs secondary syphillis (though not typical macular lesions) vs ? moluscum (again, not typical lesions) -basic labs/RPR/HIV as d/w Dr García who also evaluated pt -derm c/s 04/11/20 20:14 Labs unremarkable including RPR. HIV pending. Dr Green of derm never called back after multiple attempts. Plan to dc pt to f/u with MD in office. OTC antihistamine prn itch. pt signed out to [facility] <Nick Potts - Last Filed: 04/12/20 12:11> Discharge <Keerthi Alvarado - Last Filed: 04/11/20 20:40> - Discharge Information Problems reviewed: Yes <Nick Potts - Last Filed: 04/12/20 12:11> <Joaquin García - Last Filed: 04/14/20 07:34> - Discharge Information Clinical Impression/Diagnosis: Rash and nonspecific skin eruption Condition: Good Disposition: HOME - Follow up/Referral Referrals: Lucho Salinas MD [Primary Care Provider] - Elsa Green MD [Staff Physician] - - Patient Discharge Instructions Patient Printed Discharge Instructions: DI for Rash Additional Instructions: The cause of your rash is unclear at this time You basic blood work were normal. Your HIV and syphilis were negative Please call Dr Green of dermatology on Tuesday to make an appt for further evaluation - Post Discharge Activity
[2020-04-11 19:07] LABS: BASO % 1.8 % (0-2.0); HEMATOCRIT 35.6 % (32.4-45.2); HEMOGLOBIN 11.7 GM/dL (10.7-15.3); LYMPH % 49.4 % (8-40); MCH 29.5 pg (25.7-33.7); MCHC 32.9 g/dl (32.0-36.0); MEAN CELL VOLUME 89.9 fl (80-96); MEAN PLT VOLUME 8.7 fl (7.5-11.1); MONO % 9.5 % (3.8-10.2); NEUT % 37.3 % (42.8-82.8); PLATELET COUNT 230 K/MM3 (134-434); RBC 3.96 M/mm3 (3.60-5.2); RDW 15.7 % (11.6-15.6); WHITE BLOOD COUNT 4.4 K/mm3 (4.0-10.0)
[2020-04-11 19:20] LABS: HCG,QUALITATIVE URINE Negative
[2020-04-11 19:24] LABS: URINE APPEARANCE CLEAR; URINE BILIRUBIN NEGATIVE (NEGATIVE); URINE COLOR YELLOW; URINE GLUCOSE (UA) NEGATIVE (NEGATIVE); URINE KETONE TRACE (NEGATIVE); URINE LEUK ESTERASE NEGATIVE (NEGATIVE); URINE NITRITE NEGATIVE (NEGATIVE); URINE PROTEIN NEGATIVE (NEGATIVE)
[2020-04-11 19:38] LABS: BILIRUBIN,TOTAL 0.6 mg/dL (0.2-1); BLOOD UREA NITROGEN 11.3 mg/dL (7-18); CALCIUM 9.3 mg/dL (8.5-10.1); POTASSIUM 3.9 mmol/L (3.5-5.1); TOT PROT 8.5 g/dl (6.4-8.2)
[2020-04-11 20:06] VITALS: BP 114/69; PULSE 72; TEMP 97.8
== END 2020-04-11 20:47 | disposition home or self-care (01) ==
LOC: JER 17:36 → JERFT 17:36
DX: R21 Rash and other nonspecific skin eruption (principal)
CPT/HCPCS: 36415; 80053; 81003; 84703; 85025; 86780; 87389; 99283-25

== ENCOUNTER 2022-03-18 15:10 | Emergency (ER) | payer OTHER ==
[2022-03-18 15:25] VITALS: BP 110/70; PULSE 99; TEMP 98.9; BMI 18.9
[2022-03-18] MEDS ORDERED: AMOX TR/POT CLAV 500MG/125MG TABLETS (FP) PO ONE (16:39)
[2022-03-18] MEDS ORDERED: IBUPROFEN 600 MG TABLET (FP) PO ONE ×2 (16:39→16:44)
[2022-03-18] MEDS ORDERED: AMOX TR/POT CLAV 500MG/125MG TABLETS (FP) ONE (16:44)
== END 2022-03-18 19:27 | disposition home or self-care (01) ==
LOC: JER 15:10 → JERFT 15:10 → JER 19:27
DX: K08.89 Other specified disorders of teeth and supporting structures (principal)
CPT/HCPCS: 99283-25